=== PATIENT | female | born 1975 | race Caucasian/White ===

== ENCOUNTER 2020-01-27 09:31 | Emergency (ER) | payer OTHER ==
[~2020-01-27] VITALS: Ht 167.6 cm; Wt 59.0 kg
[~2020-01-27 09:31] MED LIST: NEXIUM40 MG/PACK PO; PERCOCET 5-3251 EACH PO; ULTRACET
[2020-01-27] MEDS ORDERED: LYRICA50 MG (09:35)
[2020-01-27] MEDS ORDERED: VISTARIL25 MG PO (13:36)
== END 2020-01-27 13:48 | disposition home or self-care (01) ==
LOC: ER 09:31
DX: R53.1 Weakness (principal); R20.0 Anesthesia of skin; Z03.818 Encounter for observation for suspected exposure to other biological agents ruled out; R06.02 Shortness of breath; R07.89 Other chest pain; F41.8 Other specified anxiety disorders

== ENCOUNTER 2023-10-08 11:30 | Inpatient (IN) | payer OTHER ==
[~2023-10-08] VITALS: Ht 167.6 cm; Wt 59.0 kg
[~2023-10-08 11:30] MED LIST changes: +LYRICA50 MG; +VISTARIL25 MG PO
[2023-10-21] MEDS ORDERED: POVIDONE-IODINE 118 ML BOTT TOP ONE ×2 (07:05→09:00)
[2023-10-21] MEDS ORDERED: CEFAZOLIN SODIUM 1,000 MG VIAL ONE ×2 (07:05→12:51)
[2023-10-21] MEDS ORDERED: CEFAZOLIN SODIUM 1,000 MG VIAL IV ONE (09:00)
[2023-10-21] MEDS ORDERED: HEMOSTATIC MATRIX 1 KIT KIT TOP ONE ×2 (09:27→09:30)
[2023-10-21] MEDS ORDERED: MORPHINE SULFATE 4 MG,MORPHINE SULFATE 2 MG IV PRN (10:15)
[2023-10-21] MEDS ORDERED: RINGERS SOLUTION,LACTATED 1,000 ML IV SCH (10:15)
[2023-10-21] MEDS ORDERED: CEFAZOLIN SODIUM 1,000 MG VIAL IV SCH (12:00)
[2023-10-21 13:04] LABS: HEMATOCRIT 33.8 % (36.0-45.00); HEMOGLOBIN 11.5 g/dL (12.0-15.00); MEAN CELL VOLUME 89.6 fL (80.00-100.00); MEAN CORPUSCULAR HEMOGLOBIN 30.4 pg (27.00-32.0); MEAN CORPUSCULAR HGB CONC 33.9 g/dl (32.0-36.0); RED BLOOD COUNT 3.78 M/uL (4.00-6.00); RED CELL DISTRIBUTION WIDTH 13.4 % (11.5-14.5)
[2023-10-21 13:08] LABS: PLATELET COUNT 122 K/uL (150-450)
[2023-10-21] MEDS ORDERED: ONDANSETRON HCL 2 MG/ML VIAL IV SCH (21:00)
[2023-10-22] MEDS ORDERED: IBUprofen 800 MG TABLET PO SCH (08:00)
[2023-10-22] MEDS ORDERED: POLYETHYLENE GLYCOL 3350 17 GM BLIST.PACK PO SCH (09:00)
[2023-10-22] MEDS ORDERED: SIMETHICONE 125 MG CAPSULE PO SCH (09:00)
[2023-10-22] MEDS ORDERED: GABAPENTIN 300 MG CAPSULE PO SCH (09:00)
[2023-10-22] MEDS ORDERED: ENOXAPARIN SODIUM 40 MG/0.4 ML SYRINGE SUBCUTANEO SCH (09:00)
[2023-10-23] MEDS ORDERED: GABAPENTIN300 MG PO (06:58)
[2023-10-23] MEDS ORDERED: IBUPROFEN800 MG PO (06:59)
[2023-10-23] MEDS ORDERED: LEVSIN/SL0.125 MG SL (07:01)
== END 2023-10-23 09:32 | disposition home or self-care (01) | DRG 743 ==
LOC: SURH 10-14 11:30 → O/R 10-21 05:25 → OB/GYN 10-21 05:25
PROVIDERS: ADMIT Obstetrics & Gynecology Gynecology; ATTEND Obstetrics & Gynecology Gynecology
PROC: 0UT74ZZ Resection of Bilateral Fallopian Tubes, Percutaneous Endoscopic Approach (ICD-10-PCS; 2023-10-21)
PROC: 0UT94ZZ Resection of Uterus, Percutaneous Endoscopic Approach (ICD-10-PCS; principal; 2023-10-21 12:45)
DX: D25.9 Leiomyoma of uterus, unspecified (principal); Z20.822 Contact with and (suspected) exposure to COVID-19